=== PATIENT | male | born 1970 | race Caucasian/White ===

== ENCOUNTER 2024-04-29 14:19 | Emergency (ER) | payer BC, SELFPAY ==
[2024-04-29 14:24] VITALS: BP 131/95
--- NOTE | 2024-04-29 14:45 | ED.GENMED ---
History of Present Illness
General
Chief Complaint: Crisis Evaluation
Source: patient
Exam Limitations: none
Time Seen by Provider: 04/29/24 14:21
History of Present Illness
History of Present Illness:
53yoM with a history of hypertension presenting via EMS for psychiatric evaluation. Patient was laid off from his job around [place] time. He was working in a warehouse. Since being laid off, patient has been increasingly depressed. He is
having intermittent panic attacks. He is also having decreased appetite and he states he goes days at a time without eating. He estimates that he has lost about 30 pounds over the past month. He is also not drinking much and is urinating less
frequently and the urine appears dark. He was apparently having a panic attack today and his called 911. Patient reports that his wanted him to come to the crisis center earlier today but he refused. He reports having intermittent
thoughts of harming himself. Earlier today, he had a thought about falling down the steps. He is not on any psychiatric medications and has never seen a therapist/psychiatrist before. No prior history of inpatient treatment.
Phy Exam
General Physical Exam
General Presentation: well appearing and no apparent distress
General Skin: warm and dry
General Habitus: normal
General Mental: alert
ENT Exam
ENT Exam: normocephalic
Cardiovascular Exam
Cardiovascular Exam: regular rate/rhythm and no murmur
Pulmonary Exam
Pulmonary Exam: lungs clear, no respiratory distress, no rales, no crackles, no rhonchi and no wheezing
Neurological Exam
Neurological Exam: alert
Douglas Coma Scale
Eye Opening: Spontaneous
Verbal Response: Oriented
Motor Response: Obeys Commands
GCS Total Score: 15
Skin Exam
Skin Exam: normal color and warm/dry
Psychiatric Exam
Psychiatric Exam: other (Flat affect. Admits to intermittent SI. No signs of psychosis. )
Course
Orders/Labs/Results
Orders:
Orders
04/29/24 14:33
1:1 Observation - Suicide/ Violent Behavior As Directed
Crisis Consult Urgent
Reason for Consult: depression
0.9% Sodium Chloride 1000 ml [Nss] 1,000 ml IV BOLUS
04/29/24 14:34
Electrocardiogram (*1) Urgent
Reason for Study: Fatigue / Weakness
EKG- Treatment ONCE
04/29/24 14:38
1:1 Observation - Suicide/ Violent Behavior As Directed
04/29/24 14:54
Complete Blood Count/With Diff Urgent
Comprehensive Metabolic Panel Urgent
Magnesium Urgent
TSH Reflex To Free T4 Urgent
04/29/24 15:02
Lorazepam [Ativan] 1 mg IV NOW STA
04/29/24 15:05
Lorazepam [Ativan] 2 mg .ROUTE .STK-MED ONE
Abnormal Lab Results
04/29/24
14:54
Absolute Monos (auto) 0.9 H 10^3/uL
(0.1-0.6)
Lymphocytes % 20.1 L %
(20.5-51.1)
Monocytes % 9.9 H %
(1.7-9.3)
BUN 8 L mg/dl
(9-20)
Glucose 109 H mg/dl
(70-99)
Total Bilirubin 1.5 H mg/dl
(0.2-1.3)
ALT 53 H U/L
(0-50)
04/29/24 14:54
04/29/24 14:54
Vital Signs
Initial and Last Documented VS:
Initial Vital Signs
Temp Pulse Resp BP Pulse Ox
97.7 F 93 18 131/95 99
04/29/24 14:24 04/29/24 14:24 04/29/24 14:24 04/29/24 14:24 04/29/24 14:24
Last Documented Vital Signs
Temp Pulse Resp BP Pulse Ox
97.7 F 93 18 131/95 99
04/29/24 14:24 04/29/24 14:24 04/29/24 14:24 04/29/24 14:24 04/29/24 14:24
MDM/Problems Addressed
Differential Diagnosis Includes:
53yoM here for psychiatric evaluation. Increasingly depressed after losing his job last month. C/o depression, increasing panic attacks, decreased appetite. He endorses intermittent SI. VSS. Differential diagnosis includes but is not limited to:
situational stress, depression, dehydration, thyroid dysfunction
Initial ED plan: Check CBC, CMP, TSH, EKG, and UA/UDS. IV Ativan and fluid bolus for symptoms. Will consult crisis and place patient on 1:1 observation.
*EKG
Interpreted by ED Provider?: Yes
EKG Intrepretation Date: 04/29/24
Heart Rate: 85
Rate: normal
Rhythm: sinus
[place]: normal axis
Interval: normal interval
QRS Pattern: normal QRS
Ischemia: other (Nonspecific T wave changes)
*Critical Care Note
Total Time (30-74mins, 75-104mins- exclusive of procedures): Not Applicable
Update Note
Update Note:
Labs unremarkable including normal electrolytes, renal function, TSH. Patient seen by crisis and was cleared for discharge. Patient denied any active SI/plan. [facility]. Patient requesting
medication for anxiety. Will trial hydroxyzine. ED return precautions discussed. Patient in agreement with plan and was discharged in stable condition.
ED Attending Note
-
Portions of this chart may have been created with voice recognition software.� Occasional wrong word or��sound alike� substitutions may have occurred due to the inherent limitations of voice recognition software.
Discharge Plan
Departure
Patient Disposition: Home (Routine Discharge)
Date of Disposition: 04/29/24
Time of Disposition: 17:39
Patient with high blood pressure during this ER visit?: No
Discharge Problem:
Encounter for psychiatric assessment, Panic attack
Instructions: Anxiety, Adult (DC)
Prescriptions:
New
hydroxyzine HCl 25 mg tablet
25 mg PO TID PRN (Reason: anxiety) Qty: 15 0RF
Referrals:
[facility] [Provider Group]
NONE,* [Family Provider] -
Activity Restrictions/Additional Instructions:
Take hydroxyzine as needed for anxiety.
Please follow-up with your family doctor and the outpatient mental health resources provided. Return to the ER with any worsening symptoms or suicidal thoughts.
Interventions
Interventions:
*Risk Screen - Suicide Last Done: 04/29/24 14:24
*General Assessment Last Done: 04/29/24 14:24
*Neglect/Abuse Screening Last Done: 04/29/24 14:24
*ED COVID-19 Vaccine History Last Done: 04/29/24 14:24
*Nursing Disposition Last Done: 04/29/24 18:46
ED-Psychological Assessment Last Done: 04/29/24 14:24
Discharge Date and Time
Discharge Date/Time: 04/29/24 18:46
Print Language: KAZAKH
[2024-04-29] MEDS: NSS 1000 IV (15:03)
[2024-04-29] MEDS: ATIVAN 1 MG IV (15:06)
[2024-04-29 15:08] LABS: % Basophils 0.5 % (0-2); % Eosinophils 1.1 % (0-6); % Immature Granulocytes 0.3 % (0-0.5); % Lymphocytes 20.1 % (20.5-51.1); % Monocytes 9.9 % (1.7-9.3); % Neutrophils 68.1 % (42.2-75.2); Absolute Basophils 0.1 10^3/uL (0-0.2); Absolute Eosinophils 0.1 10^3/uL (0-0.7); Absolute Lymphocytes 1.9 10^3/uL (1.2-3.4); Absolute Monocytes 0.9 10^3/uL (0.1-0.6); Absolute Neutrophils 6.4 10^3/uL (1.4-6.5); Hematocrit 45.6 % (39.0-52.0); Hemoglobin 15.8 g/dL (13.0-18.0); Mean Corp Hgb Conc. 34.6 g/dL (33.0-37.0); Mean Corpuscular Hgb 29.3 pg (27.0-31.0); Mean Corpuscular Volume 84.4 fL (80.0-94.0); Mean Platelet Volume 9.3 fL (7.4-10.4); Nucleated Red Blood Cells % 0 % (-); Platelet Count 260 10^3/uL (130-400); Red Cell Dist. Width 12.5 % (11.5-14.5); White Blood Cell Count 9.4 10^3/uL (4.8-10.8)
[2024-04-29 15:21] LABS: ALT (SGPT) 53 U/L (0-50); AST (SGOT) 28 U/L (17-59); Albumin 4.5 g/dl (3.5-5.0); Alkaline Phosphatase 59 U/L (38-126); Blood Urea Nitrogen 8 mg/dl (9-20); Calcium 9.3 mg/dl (8.4-10.2); Carbon Dioxide 24 mmol/L (22-30); Chloride 100 mmol/L (98-107); Glucose 109 mg/dl (70-99); Magnesium 2.1 mg/dl (1.6-2.3); Sodium 137 mmol/L (135-145); Total Bilirubin 1.5 mg/dl (0.2-1.3); eGFR > 60.00
[2024-04-29 15:50] LABS: TSH Reflex To Free T4 1.68 uIU/ml (0.47-4.68)
== END 2024-04-29 18:46 | disposition home or self-care (01) ==
LOC: EMR 14:19
PROVIDERS: Physician Assistant; EMERGENCY PHYSICIAN Student in an Organized Health Care Education/Training Program
DX: F41.0 Panic disorder [episodic paroxysmal anxiety] (principal); F32.A Depression, unspecified; I10 Essential (primary) hypertension
CPT/HCPCS: 99284; 96374; 96361; 80053; 83735; 84443; 85025; 93005

== ENCOUNTER 2024-05-31 17:23 | Emergency (ER) | payer BC, SELFPAY ==
[2024-05-31 17:37] VITALS: BP 178/102
--- NOTE | 2024-05-31 17:49 | ED.GENMED ---
ED Provider Triage
<Max Glover Jr., PA-C - Last Filed: 05/31/24 17:49>
-
Patient seen by provider in Triage?: Seen in Triage
Attestation: A medical screening examination has been initiated by a qualified medical provider. Based on the assessment performed at this time, it has been determined that an emergent medical condition may exist and the patient has been informed
that further medical evaluation and possible additional diagnostic testing may be needed.
HPI: 53-year-old male presenting with concerns of severe anxiety. Recently left by his and feels very alone. No specific thoughts of harming self or others. Does have palpitations and additional symptoms as well concerning this basic blood
work as well as EKG will be ordered.
GENERAL: Alert , in no apparent distress
EYE: No visual abnormalities.
NECK: Trachea midline
ENT: No visible abnormalities.
LUNGS: No acute respiratory distress
NEUROLOGICAL: Alert and oriented
SKIN: Skin intact. No visible changes.
MUSCULOSKELETAL: Moving extremities normally
PSYCH: Normal and appropriate interaction.
This is a medical evaluation conducted in person to initiate diagnostic evaluation and provide initial therapeutics. Please see further documentation by the treating clinician.
History of Present Illness
<Max Glover Jr., PA-C - Last Filed: 05/31/24 17:49>
General
Chief Complaint: Crisis Evaluation
Time Seen by Provider: 05/31/24 18:41
<Jose Carlos Estes PA-C - Last Filed: 06/01/24 13:30>
General
Source: patient
History of Present Illness
History of Present Illness:
53-year-old male with past medical history of anxiety and depression, hypertension, hyperlipidemia presents to the emergency department at request of his psychiatrist for evaluation of worsening anxiety with patient stating that over the last few
months he has had a loss of his job, house was being foreclosed upon and his left him yesterday. Patient states he has not been able to sleep, does not have any money for food and states that he just generally does not know what else to do.
He states he is not suicidal but also states that he does not have much of a will to live at this point. He has no physical concerns at this time other than being hungry.
Past History
<Jose Carlos Estes PA-C - Last Filed: 06/01/24 13:30>
Past History
ED Past Medical History: HTN, Hypercholesterolemia and Psychiatric
ED Past Surgical History: None
Social History
Tobacco: Non-smoker
Alcohol: None
Drug: None
Personal: Other
Living: alone
Employment: Not employed
Review of Systems
<Jose Carlos Estes PA-C - Last Filed: 06/01/24 13:30>
Review of Systems
All Other Systems: ROS reviewed and negative except as documented in HPI and ROS
Phy Exam
<Jose Carlos Estes PA-C - Last Filed: 06/01/24 13:30>
Physical Exam
Physical Exam:
GENERAL: Alert , Anxious, pacing in room
EYE: conjunctiva clear
NECK: Supple, no significant adenopathy.
ENT: mmm.
CARDIAC: Regular rate and rhythm
LUNGS: Clear breath sounds bilaterally, no acute respiratory distress, no wheezes/rales/rhonchi
NEUROLOGICAL: Alert and oriented
SKIN: Warm and dry, skin intact.
MUSCULOSKELETAL: well perfused.
PSYCH: Normal and appropriate interaction.
Scores
<TAMIKA Bhardwaj Last Filed: 06/01/24 13:30>
Heart Failure Risk
Heart Failure Risk Score: Not Applicable
Heart Score for Chest Pain Patients
STEMI patient?: Not applicable
Withdrawal Assessment of Alcohol
Withdrawal Assessment Completed?: Not applicable
Course
<Max Glover Jr., PA-C - Last Filed: 05/31/24 17:49>
Orders/Labs/Results
Orders:
Orders
05/31/24 17:49
EKG [Electrocardiogram (*1)] Urgent
Reason for Study: Chest Pain
EKG- Treatment ONCE
05/31/24 18:07
CBC/With Diff [Complete Blood Count/With Diff] Urgent
CMP [Comprehensive Metabolic Panel] Urgent
05/31/24 18:41
Crisis Consult Urgent
Reason for Consult: anxiety, possible inpatient eval
05/31/24 19:11
Fentanyl, Urine Urgent
Urine Drug Abuse Screen Urgent
Date Specimen was Collected: 05/31/24
Time Specimen was Collected: 18:07
05/31/24 19:18
Lorazepam [Ativan] 1 mg PO NOW STA
05/31/24 21:44
Lorazepam [Ativan] 1 mg IM PRN PRN
06/01/24 03:23
Lorazepam [Ativan] 1 mg PO NOW STA
06/01/24 Breakfast
Regular
At Your Request: Full Participation
Does patient need a safe tray?: Yes
06/01/24 08:55
Atorvastatin [Lipitor] 20 mg PO NOW STA
Lisinopril [Zestril] 20 mg PO NOW STA
Abnormal Lab Results
05/31/24 05/31/24
18:07 19:11
Abs Immat Gran (auto) 0.1 H 10^3/uL
(0-0.05)
Absolute Monos (auto) 0.8 H 10^3/uL
(0.1-0.6)
Immature Gran % 0.6 H %
(0-0.5)
Lymphocytes % 19.7 L %
(20.5-51.1)
BUN 7 L mg/dl
(9-20)
Glucose 104 H mg/dl
(70-99)
U Benzodiazepines Scrn Positive H
(Negative)
05/31/24 18:07
05/31/24 18:07
Vital Signs
Initial and Last Documented VS:
Initial Vital Signs
Temp Pulse Resp BP Pulse Ox
98.3 F 122 18 178/102 98
05/31/24 17:37 05/31/24 17:37 05/31/24 17:37 05/31/24 17:37 05/31/24 17:37
Last Documented Vital Signs
Temp Pulse Resp BP Pulse Ox
98.4 F 109 18 146/100 98
06/01/24 09:10 06/01/24 09:10 06/01/24 09:10 06/01/24 09:10 06/01/24 09:10
<Jose Carlos Estes PA-C - Last Filed: 06/01/24 13:30>
Orders/Labs/Results
Orders:
Orders
05/31/24 17:49
EKG [Electrocardiogram (*1)] Urgent
Reason for Study: Chest Pain
EKG- Treatment ONCE
05/31/24 18:07
CBC/With Diff [Complete Blood Count/With Diff] Urgent
CMP [Comprehensive Metabolic Panel] Urgent
05/31/24 18:41
Crisis Consult Urgent
Reason for Consult: anxiety, possible inpatient eval
05/31/24 19:11
Fentanyl, Urine Urgent
Urine Drug Abuse Screen Urgent
Date Specimen was Collected: 05/31/24
Time Specimen was Collected: 18:07
05/31/24 19:18
Lorazepam [Ativan] 1 mg PO NOW STA
05/31/24 21:44
Lorazepam [Ativan] 1 mg IM PRN PRN
06/01/24 03:23
Lorazepam [Ativan] 1 mg PO NOW STA
06/01/24 Breakfast
Regular
At Your Request: Full Participation
Does patient need a safe tray?: Yes
06/01/24 08:55
Atorvastatin [Lipitor] 20 mg PO NOW STA
Lisinopril [Zestril] 20 mg PO NOW STA
Abnormal Lab Results
05/31/24 05/31/24
18:07 19:11
Abs Immat Gran (auto) 0.1 H 10^3/uL
(0-0.05)
Absolute Monos (auto) 0.8 H 10^3/uL
(0.1-0.6)
Immature Gran % 0.6 H %
(0-0.5)
Lymphocytes % 19.7 L %
(20.5-51.1)
BUN 7 L mg/dl
(9-20)
Glucose 104 H mg/dl
(70-99)
U Benzodiazepines Scrn Positive H
(Negative)
05/31/24 18:07
05/31/24 18:07
Vital Signs
Initial and Last Documented VS:
Initial Vital Signs
Temp Pulse Resp BP Pulse Ox
98.3 F 122 18 178/102 98
05/31/24 17:37 05/31/24 17:37 05/31/24 17:37 05/31/24 17:37 05/31/24 17:37
Last Documented Vital Signs
Temp Pulse Resp BP Pulse Ox
98.4 F 109 18 146/100 98
06/01/24 09:10 06/01/24 09:10 06/01/24 09:10 06/01/24 09:10 06/01/24 09:10
<Jose Carlos Estes PA-C - Last Filed: 06/01/24 13:30>
MDM/Problems Addressed
Differential Diagnosis Includes:
Generalized anxiety disorder, panic disorder, patient denying any suicidal ideations
MDM/Problems Addressed:
53-year-old male presenting the emergency department for evaluation of increased anxiety. Patient has multiple social issues currently ongoing which is likely contributing to his generalized anxiety disorder. Patient denies suicidal ideation.
Will check labs and urine drug screen. Crisis consult ordered. Disposition pending.
Chronic conditions affecting care: Psychiatric illness
<Jose Carlos Estes PA-C - Last Filed: 06/01/24 13:30>
*Pulse Oximetry
Patient hypoxic: no
*Critical Care Note
Total Time (30-74mins, 75-104mins- exclusive of procedures): Not Applicable
<Jose Carlos Estes PA-C - Last Filed: 06/01/24 13:30>
Patient Management
Escalation/DeEscalation of care consider admission/obs:
Patient agreeable to inpatient facility. He notes significant claustrophobia within ambulance rides and is requesting something to help keep him calm. As needed Ativan ordered to be given just prior to patient's discharge while being transported.
ED Attending Note
<Max Glover Jr., PA-C - Last Filed: 05/31/24 17:49>
-
Portions of this chart may have been created with voice recognition software.� Occasional wrong word or��sound alike� substitutions may have occurred due to the inherent limitations of voice recognition software.
Discharge Plan
Departure
Patient Disposition: Psych Facility
Date of Disposition: 05/31/24
Time of Disposition: 21:44
Discharge Problem:
Generalized anxiety disorder
Prescriptions:
No Action
lisinopril 20 mg Tablet
20 mg PO DAILY
simvastatin 10 mg Tablet
10 mg PO DAILY
Referrals:
NONE,* [Family Provider] -
Interventions
Interventions:
*Risk Screen - Suicide Last Done: 05/31/24 17:24
*General Assessment Last Done: 05/31/24 18:05
*Neglect/Abuse Screening Last Done: 05/31/24 18:05
ED- Fall Risk Assessment Last Done: 05/31/24 18:06
*ED COVID-19 Vaccine History Last Done: 05/31/24 17:37
*Nursing Disposition Last Done: 06/01/24 09:10
ED-Psychological Assessment Last Done: 06/01/24 03:00
Discharge Date and Time
Discharge Date/Time: 06/01/24 09:10
Print Language: PORTUGUESE
[2024-05-31 18:23] LABS: % Basophils 0.6 % (0-2); % Eosinophils 0.5 % (0-6); % Immature Granulocytes 0.6 % (0-0.5); % Lymphocytes 19.7 % (20.5-51.1); % Monocytes 9.2 % (1.7-9.3); % Neutrophils 69.4 % (42.2-75.2); Absolute Basophils 0.1 10^3/uL (0-0.2); Absolute Immature Granulocytes 0.1 10^3/uL (0-0.05); Absolute Lymphocytes 1.7 10^3/uL (1.2-3.4); Absolute Monocytes 0.8 10^3/uL (0.1-0.6); Absolute Neutrophils 6.1 10^3/uL (1.4-6.5); Hematocrit 42.3 % (39.0-52.0); Hemoglobin 14.7 g/dL (13.0-18.0); Mean Corp Hgb Conc. 34.8 g/dL (33.0-37.0); Mean Corpuscular Hgb 29.6 pg (27.0-31.0); Mean Corpuscular Volume 85.3 fL (80.0-94.0); Nucleated Red Blood Cells % 0 % (-); Platelet Count 262 10^3/uL (130-400); Red Blood Cell Count 4.96 10^6/uL (4.70-6.10); Red Cell Dist. Width 12.7 % (11.5-14.5); White Blood Cell Count 8.7 10^3/uL (4.8-10.8)
[2024-05-31 18:36] LABS: ALT (SGPT) 41 U/L (0-50); AST (SGOT) 28 U/L (17-59); Albumin 4.7 g/dl (3.5-5.0); Alkaline Phosphatase 63 U/L (38-126); Blood Urea Nitrogen 7 mg/dl (9-20); Calcium 9.5 mg/dl (8.4-10.2); Carbon Dioxide 24 mmol/L (22-30); Chloride 103 mmol/L (98-107); Glucose 104 mg/dl (70-99); Potassium 3.9 mmol/L (3.5-5.1); Sodium 139 mmol/L (135-145); Total Bilirubin 1.2 mg/dl (0.2-1.3); Total Protein 7.3 g/dl (6.3-8.2); eGFR > 60.00
[2024-05-31] MEDS: ATIVAN 1 MG PO (19:28)
[2024-05-31 19:35] LABS: Amphetamines Negative (Negative); Barbiturates Negative (Negative); Benzodiazepines Positive (Negative); Buprenorphine Negative (Negative); Cocaine Negative (Negative); Marijuana Negative (Negative); Methadone Negative (Negative); Methamphetamines Negative (Negative); Opiates Negative (Negative); Phencyclidine Negative (Negative); Tricyclic Antidepressants Negative (Negative)
[2024-05-31 20:01] LABS: Fentanyl, Urine Negative (Negative)
[2024-05-31 21:17] VITALS: BP 139/87
--- NOTE | 2024-06-01 02:45 | DOWNTIME ---
There was a [employer] Downtime on 06/01/2024 from 0100 to 06/01/2023 at 0235 . Downtime documentation of patient's care, including medication administrations, has been reconciled in the electronic record per guidelines. Refer to the
patient's paper chart under the miscellaneous tab to see printed paper medication records and downtime forms.
[2024-06-01 02:55] VITALS: BP 127/88
[2024-06-01] MEDS: ATIVAN 1 MG PO (03:26)
[2024-06-01 08:43] VITALS: BP 146/110
[2024-06-01] MEDS: ZESTRIL 20 MG PO (09:02)
[2024-06-01] MEDS: LIPITOR 20 MG PO (09:02)
[2024-06-01 09:10] VITALS: BP 146/100
== END 2024-06-01 09:10 ==
LOC: EMR 17:23
PROVIDERS: Physician Assistant; EMERGENCY PHYSICIAN Student in an Organized Health Care Education/Training Program
DX: F41.1 Generalized anxiety disorder (principal); F32.A Depression, unspecified; I10 Essential (primary) hypertension; E78.00 Pure hypercholesterolemia, unspecified; Z56.0 Unemployment, unspecified; Z59.819 Housing instability, housed unspecified; Z63.5 Disruption of family by separation and divorce
CPT/HCPCS: 99285; 80053; 80306; 80307; 85025; 93005